=== PATIENT | male | born 1970 | race Caucasian/White ===

== ENCOUNTER 2018-04-25 11:09 | Emergency (ER) | payer OTHER ==
--- NOTE | 2018-04-25 11:14 | ER Report ---
History and Physical Time Seen By MD: 11:14 HPI/ROS CHIEF COMPLAINT: Abdominal pain, nausea, vomiting diarrhea HISTORY OF PRESENT ILLNESS: 47-year-old male patient presents to emergency room with complaint of abdominal pain, nausea, vomiting and diarrhea. Patient states been going on since midnight last night. He states he is taken several doses of Zofran. He states there is no improvement. He denies having any fevers or chills. He states he is not able to eat or drink anything as he has vomited every time that he has tried. He states that he is not noticing blood in his stool. He states that he does have generalized abdominal pain. Patient had a son that was ill for several days with a stomach bug which finally resolved. REVIEW OF SYSTEMS: Respiratory: No cough, no dyspnea. Cardiovascular: No chest pain, no palpitations. Gastrointestinal: As noted above Musculoskeletal: No back pain. Allergies: Coded Allergies: No Known Allergies (Verified Allergy, Unknown, 04/25/18) Home Meds Active Scripts Promethazine Hcl (PROMETHAZINE HCL) 25 Mg Tablet, 25 MG PO Q8H PRN for NAUSEA/VOMITING, #12 TAB Prov:OSMIN RECIOP 04/25/18 Past Medical/Surgical History Patient denies any pertinent medical history. Patient has a surgical history of left wrist surgery. Reviewed Nurses Notes: Yes Constitutional Vital Sign - Last 24 Hours 04/25/18 04/25/18 04/25/18 04/25/18 11:09 11:12 11:14 11:24 Temp 99.7 Pulse 105 102 93 Resp 11 11 B/P (MAP) 115/84 (94) 115/84 Pulse Ox 90 93 O2 Delivery Room Air Room Air 04/25/18 04/25/18 04/25/18 04/25/18 11:29 11:55 11:59 12:00 Pulse 93 99 Resp 12 25 B/P (MAP) 115/72 (86) 114/75 (88) Pulse Ox 94 90 O2 Delivery Room Air Room Air 04/25/18 04/25/18 04/25/18 04/25/18 12:29 12:30 12:35 13:00 Pulse 104 103 Resp 26 22 B/P (MAP) 115/72 (86) 119/81 (94) Pulse Ox 89 89 O2 Delivery Room Air Room Air 04/25/18 13:05 Pulse 92 Resp 31 Pulse Ox 95 O2 Delivery Room Air Physical Exam General Appearance: The patient is alert, has no immediate need for airway protection and no current signs of toxicity. Respiratory: Chest is non tender, lungs are clear to auscultation. Cardiac: regular rate and rhythm Gastrointestinal: Abdomen is soft and mildly tender throughout, no masses, bowel sounds normal. Musculoskeletal: Neck: Neck is supple and non tender. Extremities have full range of motion and are non tender. Skin: No rashes or lesions. DIFFERENTIAL DIAGNOSIS: After history and physical exam differential diagnosis was considered for nausea and vomiting including but not limited to gastroenteritis, gastritis, appendicitis, and medication side effect. Medical Decision Making Data Points Result Diagram: 04/25/18 1121 04/25/18 1121 Laboratory Hematology Test 04/25/18 11:21 Red Blood Count 5.53 M/uL (4.00-5.60) Mean Corpuscular Volume 91.5 fL (80.0-96.0) Mean Corpuscular Hemoglobin 31.6 pg (26.0-33.0) Mean Corpuscular Hemoglobin Concent 34.6 g/dL (32.0-36.0) Red Cell Distribution Width 13.6 % (11.5-14.5) Mean Platelet Volume 8.1 fL (7.2-11.1) Neutrophils (%) (Auto) 93.5 % (39.4-72.5) Lymphocytes (%) (Auto) 2.7 % (17.6-49.6) Monocytes (%) (Auto) 3.6 % (4.1-12.4) Eosinophils (%) (Auto) 0.0 % (0.4-6.7) Basophils (%) (Auto) 0.2 % (0.3-1.4) Nucleated RBC Relative Count (auto) 0.0 /100WBC Neutrophils # (Auto) 9.5 K/uL (2.0-7.4) Lymphocytes # (Auto) 0.3 K/uL (1.3-3.6) Monocytes # (Auto) 0.4 K/uL (0.3-1.0) Eosinophils # (Auto) 0.0 K/uL (0.0-0.5) Basophils # (Auto) 0.0 K/uL (0.0-0.1) Nucleated RBC Absolute Count (auto) 0.00 K/uL Sodium Level 138 mmol/L (137-145) Potassium Level 4.1 mmol/L (3.5-5.0) Chloride Level 103 mmol/L (98-107) Carbon Dioxide Level 25 mmol/L (22-30) Blood Urea Nitrogen 23 mg/dl (9-21) Creatinine 1.20 mg/dl (0.66-1.25) Glomerular Filtration Rate Calc > 60.0 Random Glucose 121 mg/dl (75-110) Calcium Level 9.1 mg/dl (8.4-10.2) Total Bilirubin 0.9 mg/dl (0.2-1.3) Aspartate Amino Transf (AST/SGOT) 70 U/L (0-35) Alanine Aminotransferase (ALT/SGPT) 102 U/L (0-56) Alkaline Phosphatase 68 U/L (0-126) Total Protein 7.4 g/dl (6.3-8.2) Albumin 4.2 g/dl (3.5-5.0) Amylase Level 81 U/L (0-110) Lipase 66 U/L (23-300) Chemistry Test 04/25/18 11:21 White Blood Count 10.2 k/uL (4.5-11.0) Red Blood Count 5.53 M/uL (4.00-5.60) Hemoglobin 17.5 g/dL (14.0-18.0) Hematocrit 50.6 % (42.0-52.0) Mean Corpuscular Volume 91.5 fL (80.0-96.0) Mean Corpuscular Hemoglobin 31.6 pg (26.0-33.0) Mean Corpuscular Hemoglobin Concent 34.6 g/dL (32.0-36.0) Red Cell Distribution Width 13.6 % (11.5-14.5) Platelet Count 199 K/uL (150-450) Mean Platelet Volume 8.1 fL (7.2-11.1) Neutrophils (%) (Auto) 93.5 % (39.4-72.5) Lymphocytes (%) (Auto) 2.7 % (17.6-49.6) Monocytes (%) (Auto) 3.6 % (4.1-12.4) Eosinophils (%) (Auto) 0.0 % (0.4-6.7) Basophils (%) (Auto) 0.2 % (0.3-1.4) Nucleated RBC Relative Count (auto) 0.0 /100WBC Neutrophils # (Auto) 9.5 K/uL (2.0-7.4) Lymphocytes # (Auto) 0.3 K/uL (1.3-3.6) Monocytes # (Auto) 0.4 K/uL (0.3-1.0) Eosinophils # (Auto) 0.0 K/uL (0.0-0.5) Basophils # (Auto) 0.0 K/uL (0.0-0.1) Nucleated RBC Absolute Count (auto) 0.00 K/uL Glomerular Filtration Rate Calc > 60.0 Calcium Level 9.1 mg/dl (8.4-10.2) Total Bilirubin 0.9 mg/dl (0.2-1.3) Aspartate Amino Transf (AST/SGOT) 70 U/L (0-35) Alanine Aminotransferase (ALT/SGPT) 102 U/L (0-56) Alkaline Phosphatase 68 U/L (0-126) Total Protein 7.4 g/dl (6.3-8.2) Albumin 4.2 g/dl (3.5-5.0) Amylase Level 81 U/L (0-110) Lipase 66 U/L (23-300) ED Course/Re-evaluation ED Course Patient was admitted to an exam room, history and physical were obtained. Differential diagnoses were considered. On examination lungs are clear, heart regular, abdomen is soft and nontender. Bowel sounds were active 4. A CBC, CMP were done. Lab results showed a left shift with 93% neutrophils. Patient was given a dose of Zofran 4 mg, liter of normal saline. On reevaluation patient states he feels less nauseated, although he can feel his stomach turning. Patient was given additional liter of normal saline. We then tried fluids. He was able to drink water without any difficulty. We will go ahead and discharge him home at this time. He is to limit his activity by pain, he simply rest. He is to increase fluid intake. He is to return to emergency room if condition worsens. Patient verbalized understanding and agreement with plan. Decision to Disposition Date: Apr 25, 2018 Decision to Disposition Time: 13:28 Depart Departure Latest Vital Signs Vital Signs Date Time Temp Pulse Resp B/P (MAP) Pulse Ox O2 Delivery O2 Flow Rate FiO2 04/25/18 13:05 92 31 95 Room Air 04/25/18 13:00 119/81 (94) 04/25/18 11:14 99.7 Impression: Primary Impression: Gastroenteritis Condition: Improved Disposition: HOME OR SELF-CARE Referrals: FEROZ ARBOLEDA DO (PCP) New Scripts Promethazine Hcl (PROMETHAZINE HCL) 25 Mg Tablet 25 MG PO Q8H PRN for NAUSEA/VOMITING, #12 TAB Prov: OSMIN RECIO 04/25/18 Patient Instructions: Gastroenteritis (ED) Additional Instructions: Increase fluid intake. Clear liquid diet for the next 24-48 hours. After that you may advance diet as tolerated starting with complex ca rbohydrates; rice, bread or pasta. Follow up with your primary care provider in the next week. Return to the ER if condition worsens. OSMNI RECIO Apr 25, 2018 11:14
[2018-04-25] MEDS ORDERED: NS(*) 0.9% 1000 ML BAG 1,000 ML IV ONE ×2 (11:21→12:05)
[2018-04-25] MEDS ORDERED: KETOROLAC 15 MG/ML VIAL IVP ONE (11:25)
[2018-04-25] MEDS ORDERED: ONDANSETRON 4 MG/2 ML VIAL IVP ONE (11:30)
[2018-04-25 11:32] LABS: PLATELET COUNT, AUTOMATED 199 K/uL (150-450)
[2018-04-25 13:00] VITALS: BP 119/81
[2018-04-25] MEDS ORDERED: PROM-110 PO (13:27)
== END 2018-04-25 13:37 | disposition home or self-care (01) ==
LOC: ER 11:24
DX: K52.9 Noninfective gastroenteritis and colitis, unspecified (principal)
CPT/HCPCS: 82150; 83690; 85025; 96361; 96374; 96375; 99284; J1885; J2405; J7030; 82040; 82247; 82310; 82374; 82435; 82565; 82947; 84075; 84132; 84155; 84295; 84450; 84460; 84520

== ENCOUNTER → 2018-11-05 | Outpatient (CLI) | payer OTHER ==
[~2018-11-05] MED LIST: PROM-110 PO
--- NOTE | 2018-11-05 10:54 | RADIOLOGY IMAGING REPORT ---
[place] [facility] [place] NAME: Carlos Guardado : 1970 MR: [id number] V: [id number] EXAM DATE: ORDERING PHYSICIAN: SEAN MCKEON [place]CHNOLOG[place] [facility] [place] : 1970 Visit/Account:[id number] Date of Sevice: 11/05/2018 EXAMINATION: MRI lumbar spine without IV contrast HISTORY: Left-sided sciatica, low back pain. COMPARISON: Lumbar spine radiographs from 08/28/2018. TECHNIQUE: Multi-planar, multi-sequence lumbar spine MRI was performed without intravenous contrast administration. FINDINGS: Alignment: Normal. Vertebral marrow signal: Negative. Distal thoracic cord: Negative. Conus: negative, terminates at the mid L1 level. Cauda equina: Negative. Paravertebral soft tissues: Negative. Visualized abdominal and pelvic structures: Negative. Disc spaces: Lower thoracic spine: Normal. L1-2: Normal. L2-3: Normal. L3-4: Mild disc bulge eccentric to the left. Mild right and moderate left foraminal stenosis with mi ld mass effect on the foraminal left L3 nerve root. No significant central canal stenosis. L4-5: Central disc extrusion with annular fissure. [id number] bilateral lateral recess stenosi s without significant central canal or foraminal stenosis. The disc contacts both transiting L5 nerv e roots, without displacing the nerve roots. L5-S1: Broad-based disc protrusion with small annular fissure and mild bilateral facet hypertrophy. No significant central canal or foraminal stenosis. IMPRESSION: 1. Degenerative disc disease and facet arthropathy is worst at L3-4 where there is moderate left for aminal stenosis with mild mass effect on the foraminal left L3 nerve root, and at L4-5 where there is [id number] bilateral lateral recess stenosis. Please see the findings for description of duncan vidual level disease. 2. Annular fissures at L4-5 and L5-S1. Report Dictated By: Ashlee Chappell MD at 11/05/2018 10:36 AM Report E-Signed By: Ashlee Chappell MD at 11/05/2018 10:51 AM [id number]
== END ==
LOC: MRI 01:42
PROVIDERS: ATTEND Neurological Surgery
DX: M51.36 Other intervertebral disc degeneration, lumbar region (principal)
CPT/HCPCS: 72148